=== PATIENT | female | born 1975 | race Caucasian/White ===

== ENCOUNTER → 2016-04-30 | Outpatient (CLI) | payer BC ==
[~2016-04-30] MED LIST: ADDERALL XR PO; BENZ100C70 PO; CHLO1CAP56 PO; DIPH25CA6; ESOM20CA PO; PRED50TA PO; SINGULAIR 10 MG
--- NOTE | 2016-04-30 16:57 | RADRPT ---
PROCEDURE: CT Sinuses. CLINICAL INDICATION: Pain and pressure in the left supraorbital region with congestion TECHNIQUE: A CT of the sinuses was performed on a high-resolution multi detector CT scanner utiliz ing thin section axial images. Sagittal and coronal reformatted images were made. The CTDIvol is 2 3.36 mGy and the DLP is 317.01 mGy-cm. COMPARISON: None available FINDINGS: The maxillary sinuses are clear without significant mucosal thickening or air-fluid levels. The ost iomeatal units are patent bilaterally. The ethmoid air cells are clear without significant mucosal thickening or air-fluid levels. The sphenoethmoidal recesses are both patent. The sphenoid sinuses are clear. The frontal recesses are both patent. The frontal sinuses are clear. There is no sign ificant nasal septal deviation. The contours of the nasopharynx are normal. The imaged portions of the brain and skull base are normal. The bilateral orbits are normal. The b ilateral lacrimal glands, globes, intraconal and extraconal spaces and optic nerves are symmetric an d normal. IMPRESSION: 1. Normal sinus CT RPTAT: [facility] .Cristal Hayden MD, Date Time Electronically viewed and signed by .Cristal Hayden MD, on 04/30/2016 16:57 .C/
== END | disposition home or self-care (01) ==
LOC: C/S 13:59
PROVIDERS: ATTEND Internal Medicine
DX: J32.9 Chronic sinusitis, unspecified (principal)
CPT/HCPCS: 70486

== ENCOUNTER → 2016-05-03 | Outpatient (CLI) | payer BC | END | disposition home or self-care (01) | LOC: PUL 11:08 | PROVIDERS: ATTEND Internal Medicine | DX: J45.909 Unspecified asthma, uncomplicated (principal) | CPT/HCPCS: 94010; 94726; 94729 ==

== ENCOUNTER → 2016-05-20 | Outpatient (CLI) | payer BC ==
[2016-05-20 11:57] LABS: BASOPHILS % 0.3 % (0.0-2.0); EOSINOPHILS # 0.1 10^3/ul (0.0-0.5); EOSINOPHILS % 1.4 % (0.0-7.0); HEMATOCRIT 31.1 % (37.0-47.0); HEMOGLOBIN 9.4 g/dl (12.0-16.0); LYMPHOCYTES # 1.4 10^3/ul (0.8-2.9); LYMPHOCYTES % 37.7 % (15.0-51.0); MEAN CORPUSCULAR HGB CONC 30.2 g/dl (32.0-37.0); MEAN PLATELET VOLUME 10.9 fl (7.4-10.4); MONOCYTE # 0.3 10^3/ul (0.3-0.9); MONOCYTES % 6.9 % (0.0-11.0); NEUTROPHIL # 1.9 10^3/ul (1.6-7.5); NEUTROPHILS % 53.4 % (39.0-77.0); PLATELET COUNT 322 10^3/UL (140-415); RED BLOOD COUNT 4.09 10^6/ul (4.20-5.40); RED CELL DISTRIBUTION WIDTH 17.3 % (11.5-14.5); WHITE BLOOD COUNT 3.6 10^3/ul (4.8-10.8)
[2016-05-20 12:06] LABS: ALBUMIN 4.1 g/dl (3.3-4.9)
[2016-05-20 12:07] LABS: POTASSIUM 3.8 mmol/L (3.5-5.1)
[2016-05-20 12:08] LABS: CREATININE 0.59 mg/dl (0.44-1.00)
[2016-05-20 12:09] LABS: ALBUMIN/GLOBULIN RATIO 1.32; BILIRUBIN,INDIRECT 0.1 mg/dl (0-1.1); BILIRUBIN,TOTAL 0.1 mg/dl (0.2-1.3); TOTAL PROTEIN 7.2 g/dl (6.1-8.1)
[2016-05-20 12:10] LABS: CALCIUM 8.4 mg/dl (8.4-10.2); CHOL/HDL RATIO 3.7 RATIO
[2016-05-20 14:06] LABS: THYROID STIMULATING HORMONE 0.862 MIU/L (0.465-4.680)
== END | disposition home or self-care (01) ==
LOC: LAB 11:25
PROVIDERS: ATTEND Internal Medicine
DX: D64.9 Anemia, unspecified (principal); E03.9 Hypothyroidism, unspecified; E78.5 Hyperlipidemia, unspecified
CPT/HCPCS: 80053; 80061; 82306; 84436; 84443; 85025

== ENCOUNTER 2016-08-25 14:00 | Emergency (ER) | payer BC ==
[~2016-08-25] VITALS: Ht 152.4 cm; Wt 65.0 kg
[2016-08-25 14:04] VITALS: Ht 152.4 cm; Wt 65.0 kg
[2016-08-25] MEDS ORDERED: KETOROLAC 30 MG INJ IM STA ×2 (14:42→15:44)
[2016-08-25] MEDS ORDERED: MONT10TA21 PO (15:09)
[2016-08-25] MEDS ORDERED: DEXT10TA9 PO (15:10)
[2016-08-25] MEDS ORDERED: NORE1TAB12 PO (15:10)
[2016-08-25] MEDS ORDERED: ESOM20CA PO (15:12)
[2016-08-25] MEDS ORDERED: CHLO1CAP57 PO (15:14)
[2016-08-25 15:25] LABS: ADD UMIC NO; URINE BILIRUBIN (Dip) NEGATIVE (NEGATIVE); URINE BLOOD (Dip) NEGATIVE (NEGATIVE); URINE COLOR LT. YELLOW (YELLOW); URINE GLUCOSE (Dip) NEGATIVE (NEGATIVE); URINE KETONES (Dip) NEGATIVE (NEGATIVE); URINE LEUKOCYTE ESTERASE (Dip) NEGATIVE (NEGATIVE); URINE NITRITE (Dip) NEGATIVE (NEGATIVE); URINE TOTAL PROTEIN (Dip) NEGATIVE (NEGATIVE); URINE UROBILINOGEN (Dip) 0.2 E.U./dL (0.1-1.0)
--- NOTE | 2016-08-25 15:59 | ERD ---
ER Documentation Chief Complaint Date/Time DATE: 08/25/16 TIME: 15:56 Chief Complaint LOWER BACK PAIN X 3 DAYS HPI This 41-year-old female presents emergency room for bilateral lower back pain for the last 3 days. The pain is worse on the right lower back. She has also had this problem on and off for a long time. She has a history of sciatica. The pain does shoot down her legs and feels it in different parts of her legs at different times. Currently she is requesting a shot of Toradol. 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 She has no numbness, weakness, no urinary retention, urinary frequency or dysuria currently. ROS All systems reviewed and are negative except as per history of present illness. Medications Home Meds Active Scripts Naproxen* (Naproxen*) 500 Mg Tablet, 500 MG PO BID, #27 TAB Prov:ELBA BARAJAS DO 08/25/16 Methocarbamol* (Robaxin*) 500 Mg Tab, 500 MG PO Q8, #20 TAB Prov:ELBA BARAJAS DO 08/25/16 Hydrocodone/Acetaminophen (Elton 5-325 Tablet) 1 Each Tablet, 1 EACH PO Q6, #14 TAB Prov:ELBA BARAJAS DO 08/25/16 Reported Medications Chlordiazepoxide/Clidinium Br (Chlordiazepoxide-Clidinium Cap) 1 Each Capsule, 1 EACH PO NEEDED, CAP 08/25/16 Esomeprazole Mag Trihydrate (Nexium) 20 Mg Capsule.dr, 20 MG PO DAILY, #30 CAP 08/25/16 Noreth A-Et Estra/Fe Fumarate (LO LOESTRIN FE 1-10 TABLET) 1 Each Tablet, 1 EACH PO DAILY, TAB 08/25/16 Amphet Iix-Kvmbpm-G-Amphet (Adderall) 10 Mg Tablet, 10 MG PO QAM, TAB 08/25/16 Montelukast Sodium* (Singulair*) 10 Mg Tablet, 10 MG PO DAILY, #30 TAB 08/25/16 Discontinued Reported Medications Esomeprazole Mag Trihydrate (Nexium) 20 Mg Capsule.dr, 20 MG PO 01/12/13 Chlordiazepoxide/Clidinium* (Librax*) 1 Cap Cap, 1 CAP PO 01/12/13 [Singulair 10MG] No Conflict Check 01/12/13 [Adderall Xr] No Conflict Check, PO DAILY 08/19/11 Diphenhydramine Hcl (Benadryl) 25 Mg Cap 07/11/10 Discontinued Scripts Prednisone* (Prednisone*) 50 Mg Tablet, 50 MG PO DAILY for 4 Days, TAB Prov:HOLLEY TURCIOS PA-C 01/18/16 Benzonatate* (Tessalon Perle*) 100 Mg Capsule, 100 MG PO Q8H Y for COUGH for 5 Days, CAP Prov:HOLLEY TURCIOS PA-C 01/18/16 Allergies Allergies: Coded Allergies: No Known Drug Allergies (Verified Allergy, Unknown, 08/25/16) PMhx/Soc History of Surgery: Yes (c/section x 3, sclerotherapy) Anesthesia Reaction: No Hx Neurological Disorder: No Hx Respiratory Disorders: No Hx Cardiac Disorders: No Hx Psychiatric Problems: No Hx Miscellaneous Medical Probl: Yes (gastritis) Hx Alcohol Use: No Hx Substance Use: No Hx Tobacco Use: No Smoking Status: Never smoker Physical Exam Vitals Vital Signs Date Time Temp Pulse Resp B/P Pulse Ox O2 Delivery O2 Flow Rate FiO2 08/25/16 14:04 97.9 92 19 128/80 99 Physical Exam Const: [] No distress Eyes: Normal Conjunctiva, EOMI, PRL Neck: Full range of motion..~ No meningismus. Abd: Soft, non tender, non distended. Normal bowel sounds Skin: No petechiae or rashes Back: No midline or flank tenderness. Bilateral paraspinal lumbar muscle spasm worse on the left than the right. Ext: No cyanosis, or edema, distal pulses intact all 4 extremities Neur: Awake and alert and oriented 3, 5 out of 5 strength all extremities, no focal deficits Results 24 hrs Laboratory Tests Test 08/25/16 14:45 Urine Color LT. YELLOW Urine Clarity CLEAR Urine pH 6.5 Urine Specific [place] 1.010 Urine Ketones NEGATIVE Urine Nitrite NEGATIVE Urine Bilirubin NEGATIVE Urine Urobilinogen 0.2 E.U./dL Urine Leukocyte Esterase NEGATIVE Urine Hemoglobin NEGATIVE Urine Glucose NEGATIVE% Urine Total Protein NEGATIVE Current Medications Medications (Trade) Dose Ordered Sig/Mery Route PRN Reason Start Time Stop Time Status Last Admin Dose Admin Ketorolac Tromethamine (Toradol) 30 mg ONCE STAT IM 08/25/16 14:42 08/25/16 14:43 DC 5/17/17 14:55 Diazepam (Valium) 5 mg ONCE ONCE IM 08/25/16 16:00 08/25/16 16:01 DC 08/25/16 16:03 Ketorolac Tromethamine (Toradol) 30 mg ONCE STAT IM 08/25/16 15:44 08/25/16 15:45 DC 08/25/16 16:03 Procedures/MDM Lumbar back muscle spasm and pain with sciatica. Patient has a history of the same. She was given Toradol 60 IM as well as IM Valium which did help with her pain and spasm. I am discharging her with Elton, naproxen, Robaxin. No signs of cauda equina syndrome at this time. No leg weakness. Discharging with a referral to obtain an MRI appointment from the PMD and return precautions to the ER. Departure Diagnosis: Primary Impression: Lumbar paraspinal muscle spasm Additional Impression: Sciatica Condition: Stable ELBA BARAJAS DO August 25, 2016 15:59
[2016-08-25] MEDS ORDERED: DIAZEPAM 5 MG/ML SYG IM ONE (16:00)
[2016-08-25] MEDS ORDERED: NAPR-688 PO (16:50)
[2016-08-25] MEDS ORDERED: METH500T PO (16:50)
[2016-08-25] MEDS ORDERED: HYDR-906 PO (16:50)
[2016-08-25] MEDS ORDERED: OXYC-279 PO (16:57)
[2016-08-25] MEDS ORDERED: CYCL-319 PO (16:57)
== END 2016-08-25 17:03 | disposition home or self-care (01) ==
LOC: E/R 14:00
DX: M62.830 Muscle spasm of back (principal); M54.42 Lumbago with sciatica, left side; M54.41 Lumbago with sciatica, right side; R40.2142 Coma scale, eyes open, spontaneous, at arrival to emergency department; R40.2252 Coma scale, best verbal response, oriented, at arrival to emergency department; R40.2362 Coma scale, best motor response, obeys commands, at arrival to emergency department
CPT/HCPCS: 81003; 96372; 99284; J1885; J3360

== ENCOUNTER → 2017-10-18 | Outpatient (CLI) | END | disposition home or self-care (01) ==

== ENCOUNTER 2017-10-19 17:03 | Observation (INO) | END 2017-10-20 16:05 | disposition home or self-care (01) ==

== ENCOUNTER → 2017-12-08 | Outpatient (CLI) | END | disposition home or self-care (01) ==

== ENCOUNTER → 2018-01-25 | Outpatient (CLI) | END | disposition home or self-care (01) ==

== ENCOUNTER → 2018-07-28 | Outpatient (CLI) | payer BC ==
[~2018-07-28] MED LIST changes: -ADDERALL XR PO; +ATOR40TA68 PO; -BENZ100C70 PO; -CHLO1CAP56 PO; +DEXT10TA9 PO; -DIPH25CA6; +MONT10TA21 PO; +NITR0.4T32 SL; -PRED50TA PO; -SINGULAIR 10 MG
== END | disposition home or self-care (01) ==
LOC: LAB 11:59
PROVIDERS: ATTEND Internal Medicine
DX: E03.9 Hypothyroidism, unspecified (principal); R73.03 Prediabetes; E78.5 Hyperlipidemia, unspecified
CPT/HCPCS: 80053; 80061; 82728; 83036; 84436; 84439; 84443; 85025; 85651